=== PATIENT | female | born 2000 | race Caucasian/White ===

== ENCOUNTER 2019-12-22 20:45 | Observation (INO) ==
[2019-12-22] MEDS ORDERED: Naloxone 0.4 MG/ML INJ IVP PRN (23:44)
[2019-12-23] MEDS ORDERED: Naloxone 0.4 MG/ML INJ IVP PRN (01:15)
[2019-12-23] MEDS ORDERED: 0.9 % Sodium Chloride 1,000 ML IVC SCH (02:00)
[2019-12-23] MEDS ORDERED: Nicotine 14 MG PATCH.TD24 TD PRN (02:22)
[2019-12-23 03:14] LABS: Basophils % 0.2 %; Eosinophils % 0.1 %; Hematocrit 38.8 % (35.3-44.9); Hemoglobin 12.4 g/dL (11.5-15.4); Immature Granulocytes % 0.6 % (0-4); Lymphocytes # 1.1 K/mcL (0.6-4.6); Lymphocytes % 5.7 %; Mean Corpuscular Volume 90.7 fL (83.0-100.0); Mean Platelet Volume 9.7 fL (9.4-12.4); Monocytes # 0.1 K/mcL (0.0-1.3); Monocytes % 0.6 %; Neutrophils # 18.2 K/mcL (1.6-8.9); Platelet Count 347 K/mcL (140-400); Red Blood Count 4.28 M/mcL (3.82-4.97); Segmented Neutrophils % 92.8 %; White Blood Count 19.6 K/mcL (4.3-11.1)
[2019-12-23 03:15] LABS: Adenovirus Not Detected (Not Detect); Bordetella Pertussis Not Detected (Not Detect); Chlamydophila pneumoniae Not Detected (Not Detect); Coronavirus 229E Not Detected (Not Detect); Coronavirus HKU1 Not Detected (Not Detect); Coronavirus NL63 Not Detected (Not Detect); Coronavirus OC43 Not Detected (Not Detect); Human Metapneumovirus Not Detected (Not Detect); Human Rhinovirus/Enterovirus Not Detected (Not Detect); Influenza A Subtype 2009 H1 Not Detected (Not Detect); Influenza B Not Detected (Not Detect); Mycoplasma pneumoniae Not Detected (Not Detect); Parainfluenza Virus 1 Not Detected (Not Detect); Parainfluenza Virus 2 Not Detected (Not Detect); Parainfluenza Virus 3 Not Detected (Not Detect); Parainfluenza Virus 4 Not Detected (Not Detect); Respiratory Syncytial Virus Not Detected (Not Detect); SARS-CoV-2 Not Detected (Not Detect)
[2019-12-23 03:34] LABS: BUN/Creatinine Ratio 17 (6-26); Blood Urea Nitrogen 10 mg/dL (6-20); Calcium 9.3 mg/dL (8.6-10.3); Carbon Dioxide 24 mEq/L (23-29); Chloride 104 mEq/L (98-107); Glucose 115 mg/dL (70-105); Osmolality,Calculated 284 (280-300); Potassium 4.6 mEq/L (3.5-5.1); Sodium 137 mEq/L (136-145); eGFR For African Americans > 60 (> 60); eGFR For Non-African Americans > 60 (> 60)
[2019-12-23] MEDS ORDERED: Ibuprofen 600 MG TABLET PO PRN (07:50)
[2019-12-23] MEDS ORDERED: Clindamycin 900 MG/50 ML 900 MG/50 ML IV.SOLN IVPB SCH (08:00)
[2019-12-23] MEDS ORDERED: Dexamethasone 4 MG/ML VIAL IVP SCH ×2 (08:00→09:00)
[2019-12-23 10:28] VITALS: BP 114/66
== END 2019-12-23 15:29 | disposition home or self-care (01) ==
LOC: 3ANU → SUATTDRO 22:19
PROVIDERS: ADMIT Internal Medicine; ATTEND Internal Medicine

== ENCOUNTER 2020-11-10 04:04 | Inpatient (IN) ==
[2020-11-10] MEDS ORDERED: Ondansetron 4 MG/2 ML VIAL IVP PRN (04:05)
[2020-11-10] MEDS ORDERED: *HR* Nalbuphine 10 MG/ML AMPUL IV PRN (04:05)
[2020-11-10] MEDS ORDERED: Lidocaine 1% 20 ML MDV INFILT PRN (04:05)
[2020-11-10] MEDS ORDERED: Metoclopramide 10 MG/2 ML VIAL IVP PRN (04:05)
[2020-11-10] MEDS ORDERED: Naloxone 0.4 MG/ML INJ IVP PRN (04:05)
[2020-11-10] MEDS ORDERED: Famotidine 20 MG/2 ML VIAL IVP PRN (04:05)
[2020-11-10] MEDS ORDERED: miSOPROStoL 25 MCG TABLET PO PRN (04:07)
[2020-11-10] MEDS ORDERED: Ringers Solution, Lactated 1,000 ML IVC SCH (04:15)
[2020-11-10 05:04] LABS: Basophils % 0.2 %; Eosinophils # 0.2 K/mcL (0.0-0.6); Eosinophils % 1.5 %; Hematocrit 33.2 % (35.3-44.9); Hemoglobin 11.3 g/dL (11.5-15.4); Immature Granulocytes % 0.5 % (0-4); Lymphocytes # 2.6 K/mcL (0.6-4.6); Lymphocytes % 19.9 %; Mean Corpuscular Hemoglobin 30.4 pg (28.0-33.3); Mean Corpuscular Volume 89.2 fL (83.0-100.0); Mean Platelet Volume 10.5 fL (9.4-12.4); Monocytes # 1.3 K/mcL (0.0-1.3); Monocytes % 9.5 %; Platelet Count 252 K/mcL (140-400); Red Blood Count 3.72 M/mcL (3.82-4.97); Red Cell Distribution Width 12.7 % (11.5-14.5); Segmented Neutrophils % 68.4 %; White Blood Count 13.2 K/mcL (4.3-11.1)
[2020-11-10 05:13] LABS: Amphetamine Screen,Urine Negative ng/mL (Cutoff=1000); Barbiturate Screen,Urine Negative ng/mL (Cutoff=200); Benzodiazepines Screen,Urine Negative ng/mL (Cutoff=200); Cannabinoid Screen,Urine Negative ng/mL (Cutoff = 50); Cocaine Screen,Urine Negative ng/mL (Cutoff= 300); Opiate Screen,Urine Negative ng/mL (Cutoff=300); Phencyclidine Screen,Urine Negative ng/mL (Cutoff=25)
[2020-11-10] MEDS ORDERED: Oxytocin 20 units/ LR 1000 mL 20 UNIT/1,000 ML BAG IVC SCH ×2 (10:00→18:58)
[2020-11-10] MEDS ORDERED: Ropivacaine/PF 0.2% 20 ML VIAL EP ONE (17:17)
[2020-11-10] MEDS ORDERED: *HR* FentaNYL (PF) 100 MCG/2 ML VIAL EP ONE (17:17)
[2020-11-10] MEDS ORDERED: EPHEDrine 50 MG/ML VIAL IVP PRN (17:17)
[2020-11-10] MEDS ORDERED: Epidural Premix (fent/bupiv) 110 ML EP ONE (17:29)
[2020-11-10] MEDS ORDERED: Epidural Premix (fent/bupiv) 110 ML EP SCH (17:30)
[2020-11-10] MEDS ORDERED: Benzocaine/Menthol 56 GM AEROSOL SPRAY TP PRN (18:58)
[2020-11-10] MEDS ORDERED: Acetaminophen 325 MG TABLET PO PRN (18:58)
[2020-11-10] MEDS ORDERED: Lanolin 7 G OINT...G. TP PRN (18:58)
[2020-11-10 22:33] VITALS: O2SAT 98
[2020-11-11] MEDS: Ibuprofen 600 MG TABLET PO PRN ×3 (02:19→15:20)
[2020-11-11 03:58] LABS: Basophils % 0.1 %; Eosinophils # 0.1 K/mcL (0.0-0.6); Hematocrit 32.6 % (35.3-44.9); Hemoglobin 10.7 g/dL (11.5-15.4); Immature Granulocytes % 0.4 % (0-4); Lymphocytes # 2.4 K/mcL (0.6-4.6); Mean Corpuscular HGB Conc 32.8 g/dL (31.6-35.5); Mean Corpuscular Hemoglobin 29.7 pg (28.0-33.3); Mean Corpuscular Volume 90.6 fL (83.0-100.0); Mean Platelet Volume 10.4 fL (9.4-12.4); Monocytes # 0.9 K/mcL (0.0-1.3); Monocytes % 6.5 %; Neutrophils # 9.9 K/mcL (1.6-8.9); Platelet Count 209 K/mcL (140-400); Red Cell Distribution Width 12.7 % (11.5-14.5); White Blood Count 13.4 K/mcL (4.3-11.1)
[2020-11-11] MEDS ORDERED: Prenatal Vit/FA 1 EACH TABLET PO SCH (09:00)
[2020-11-11 15:39] VITALS: BP 122/81; PULSE 56; TEMP 97.7
== END 2020-11-11 18:59 | disposition home or self-care (01) | DRG 560 ==
LOC: 1NENULAB 04:04 → 1NENUOBS 21:04
PROVIDERS: ADMIT Obstetrics & Gynecology; ATTEND Obstetrics & Gynecology